=== PATIENT | male | born 1980 | race Caucasian/White ===

== ENCOUNTER 2025-01-20 22:48 | Observation (INO) | payer OTHER, SELFPAY ==
[2025-01-20] VITALS (13 sets, daily range): BP systolic 121–149; BP diastolic 79–96; BMI 33.0
[2025-01-20 19:58] LABS: Glucose - Point of Care 124 mg/dl (70-99)
--- NOTE | 2025-01-20 20:06 | ED.CVA ---
History of Present Illness
<Paula Draper PA-C - Last Filed: 01/21/25 01:16>
General
Chief Complaint: CVA/TIA Symptoms
Source: spouse
Exam Limitations: altered mental status
Time Seen by Provider: 01/20/25 19:54
Onset of Stroke Symptoms
Onset of symptoms known: Yes
Date of onset of symptoms: 01/20/25
Time of onset of symptoms: 19:15
History of Present Illness
History of Present Illness:
44yoM with a history of seizures and prior TIA presenting with his for evaluation of stroke-like symptoms that began around 7:15pm. Patient was out to eat with his for their anniversary dinner this evening. suddenly noticed that he
was making repetitive mouth movements and this index finger was twitching. He started to became unresponsive to questioning and had to escort him out of the restaurant. He drank half an old fashioned. He is unable to answer any questions on
initial exam. He moved to the area 2 months ago from [place]. He takes lacosamide 200mg and zonisamide 100mg for his seizures. He has not missed any doses per . His prior seizures have always been focal and he has never had an
alteration in mental status previously. He had a TIA in 2020 which presented with speech disturbance. He does not take any antiplatelet medications.
Phy Exam
<Paula Draper PA-C - Last Filed: 01/21/25 01:16>
General Physical Exam
General Presentation: no apparent distress
General Skin: warm and dry
General Habitus: normal
General Mental: alert
ENT Exam
ENT Exam: normocephalic
Eye Exam
Eye Exam: PERRL and conjunctiva normal
Cardiovascular Exam
Cardiovascular Exam: regular rate/rhythm
Pulmonary Exam
Pulmonary Exam: no respiratory distress
Neurological Exam
Neurological Exam: other (Patient awake and intermittently follows commands although unable to respond verbally to questioning. Patient does not hold arms against gravity but able to lift both legs without obvious drift. No obvious facial
asymmetry. PERRL. )
Skin Exam
Skin Exam: normal color and warm/dry
Scores
<Paula Draper PA-C - Last Filed: 01/21/25 01:16>
NIH Stroke Score
Level of Consciousness: 0 - Alert
LOC Questions: 0-Answers both correctly
LOC Commands: 0-Performs both correctly
Best Horizontal Gaze: 0-Normal
Visual [place]: 0=Normal, no visual loss
Facial Palsy: 0=Normal, symmetrical
Motor - Right Arm: 0=No drift 10 seconds
Motor - Left Arm: 0=No drift 10 seconds
Motor - Right Le-No drift 5 seconds
Motor - Left Le-No drift 5 seconds
Limb Ataxia: 0-Absent
Sensation: 0-Normal
Best Language: 0-No aphasia
Dysarthria: 0-Normal
Extinction and Inattention: 0-No abnormality
NIH Total Score:: 0
Course
<Paula Draper PA-C - Last Filed: 01/21/25 01:16>
Orders/Labs/Results
Orders:
Orders
01/20/25 19:54
Electrocardiogram (*1) Urgent
Reason for Study: Other
Other Reason for Exam: Possible Stroke
CT HEAD STROKE ALERT W/o Cont Urgent
Comment:
Reason For Exam: STROKE ALERT
Bedside Glucose- Treatment ONCE
Cardiac Monitoring- Treatment ONCE
EKG- Treatment ONCE
IV Insert/Care/Rem.- Treatment PRN
Vital Signs As Directed
Frequency: Other
Weight As Directed
Frequency: Once
Comment: ZERO STRETCHER SCALE FOR ACCURATE WEIGHT
O2 Therapy [RESP] Urgent
Titrate/Wean O2 to maintain O2 sat greater than (%): 93
Special Instructions: MAINTAIN CONTINUOUS O2 SATS > OR = 93%
01/20/25 20:00
CT BRAIN PERF STROKE ALERT Urgent
Comment:
Reason For Exam: stroke symptoms
CT HEAD/NECK ANG STROKE ALERT Urgent
Comment:
Reason For Exam: stroke symptoms
01/20/25 20:02
Complete Blood Count/With Diff Urgent
Comprehensive Metabolic Panel Urgent
PTT Urgent
Prothrombin Time Urgent
Troponin I Urgent
01/20/25 20:33
[facility] [Rapid Point of Care EEG (ED/ICU ONLY)] Q1H
Indications for use:: Altered Mental Status
01/20/25 22:17
Lacosamide [Vimpat] 100 mg PO NOW STA
Lacosamide [Vimpat] 50 mg PO NOW STA
Zonisamide [Zonegran] 100 mg PO NOW STA
01/20/25 22:24
Admit/Transfer Patient As Directed
Co-Sign Provider:
Level of Care: Observation services
Assign to:: Telemetry
Physician / Group: Tristan Chaney
Diagnosis: change in mental status
Reason for Telemetry: CVA/TIA
Date to Stop Telemetry: 01/23/25
Time to Stop Telemetry: 11:00
PRN Pain Medication Management As Directed
May give lesser potent ordered pain med per pt: Yes
preference::
Protocol:: Medication orders for pain may be administered in a
manner that supports deferring to patient preference
when the pt is:
- Requesting an ordered lesser potent pain medication.
Least to most potent pain medications are defined
as: acetaminophen < NSAID < tramadol < opioids
(morphine, oxycodone, hydromorphone).
- Requesting a lesser dose of the same medication IF
ORDERED.
- Requesting a less intrusive route of administration
if both routes are prescribed by the provider (PO <
IV).
01/20/25 22:26
Code Status As Directed
Resuscitation Status: Full Code
01/23/25 11:00
DC Protocol for Telemetry ONCE
Abnormal Lab Results
01/20/25 01/20/25
19:57 20:02
MPV 10.5 H fL
(7.4-10.4)
Glucose 116 H mg/dl
(70-99)
POC Glucose 124 H mg/dl
(70-99)
01/20/25 20:02
01/20/25 20:02
Vital Signs
Initial and Last Documented VS:
Initial Vital Signs
Pulse Resp Pulse Ox
58 15 95
01/20/25 19:56 01/20/25 19:56 01/20/25 19:56
Last Documented Vital Signs
Pulse Resp BP Pulse Ox
65 16 126/83 97
01/21/25 00:15 01/21/25 00:15 01/21/25 00:00 01/21/25 00:15
Caitlynlt;Misha Brenner, - Last Filed: 01/20/25 23:11>
Orders/Labs/Results
Orders:
Orders
01/20/25 19:54
Electrocardiogram (*1) Urgent
Reason for Study: Other
Other Reason for Exam: Possible Stroke
CT HEAD STROKE ALERT W/o Cont Urgent
Comment:
Reason For Exam: STROKE ALERT
Bedside Glucose- Treatment ONCE
Cardiac Monitoring- Treatment ONCE
EKG- Treatment ONCE
IV Insert/Care/Rem.- Treatment PRN
Vital Signs As Directed
Frequency: Other
Weight As Directed
Frequency: Once
Comment: ZERO STRETCHER SCALE FOR ACCURATE WEIGHT
O2 Therapy [RESP] Urgent
Titrate/Wean O2 to maintain O2 sat greater than (%): 93
Special Instructions: MAINTAIN CONTINUOUS O2 SATS > OR = 93%
01/20/25 20:00
CT BRAIN PERF STROKE ALERT Urgent
Comment:
Reason For Exam: stroke symptoms
CT HEAD/NECK ANG STROKE ALERT Urgent
Comment:
Reason For Exam: stroke symptoms
01/20/25 20:02
Complete Blood Count/With Diff Urgent
Comprehensive Metabolic Panel Urgent
PTT Urgent
Prothrombin Time Urgent
Troponin I Urgent
01/20/25 20:33
[facility] [Rapid Point of Care EEG (ED/ICU ONLY)] Q1H
Indications for use:: Altered Mental Status
01/20/25 22:17
Lacosamide [Vimpat] 100 mg PO NOW STA
Lacosamide [Vimpat] 50 mg PO NOW STA
Zonisamide [Zonegran] 100 mg PO NOW STA
01/20/25 22:24
Admit/Transfer Patient As Directed
Co-Sign Provider:
Level of Care: Observation services
Assign to:: Telemetry
Physician / Group: Shiv, Tristan
Diagnosis: change in mental status
Reason for Telemetry: CVA/TIA
Date to Stop Telemetry: 01/23/25
Time to Stop Telemetry: 11:00
PRN Pain Medication Management As Directed
May give lesser potent ordered pain med per pt: Yes
preference::
Protocol:: Medication orders for pain may be administered in a
manner that supports deferring to patient preference
when the pt is:
- Requesting an ordered lesser potent pain medication.
Least to most potent pain medications are defined
as: acetaminophen < NSAID < tramadol < opioids
(morphine, oxycodone, hydromorphone).
- Requesting a lesser dose of the same medication IF
ORDERED.
- Requesting a less intrusive route of administration
if both routes are prescribed by the provider (PO <
IV).
01/20/25 22:26
Code Status As Directed
Resuscitation Status: Full Code
01/23/25 11:00
DC Protocol for Telemetry ONCE
Abnormal Lab Results
01/20/25 01/20/25
19:57 20:02
MPV 10.5 H fL
(7.4-10.4)
Glucose 116 H mg/dl
(70-99)
POC Glucose 124 H mg/dl
(70-99)
01/20/25 20:02
01/20/25 20:02
Vital Signs
Initial and Last Documented VS:
Initial Vital Signs
Pulse Resp Pulse Ox
58 15 95
01/20/25 19:56 01/20/25 19:56 01/20/25 19:56
Last Documented Vital Signs
Pulse Resp BP Pulse Ox
65 16 126/83 97
01/21/25 00:15 01/21/25 00:15 01/21/25 00:00 01/21/25 00:15
<Paula Draper PA-C - Last Filed: 01/21/25 01:16>
MDM/Problems Addressed
Differential Diagnosis Includes:
44yoM presenting as a stroke alert. Eating dinner tonight when he started to have mouth twitching and stopped responding verbally. Symptom onset <1 hour ago. Eyes open on initial exam but patient unable to answer questions or reliably following
commands. No obvious focal neuro deficits. Differential diagnosis includes but is not limited to: Seizure with postictal period, intracranial hemorrhage, ischemic CVA
Initial ED plan: Fingerstick glucose normal. Labs and CT/CTA/CTP ordered per protocol.
<Paula Draper PA-C - Last Filed: 01/21/25 01:16>
*Pulse Oximetry
SaO2: 95
Oxygen Mode of Delivery: Room air
Patient hypoxic: no
*EKG
Interpreted by ED Provider?: Yes
EKG Intrepretation Date: 01/20/25
Heart Rate: 78
Rate: normal
Rhythm: sinus
[place]: normal axis
Interval: normal interval
QRS Pattern: normal QRS
Ischemia: no ischemia
*Critical Care Note
Total Time (30-74mins, 75-104mins- exclusive of procedures): Not Applicable
<Paula Draper PA-C - Last Filed: 01/21/25 01:16>
Update Note
Update Note:
CT head negative for hemorrhage. No large vessel occlusion on CTA. On reassessment, patient is now awake and alert. feels that he is back to baseline. NIHSS 0. Patient not a TNK candidate. Suspect seizure with postictal period vs. TIA.
Will admit for neurology evaluation.
ED Attending Note
<Paula Draper PA-C - Last Filed: 01/21/25 01:16>
-
Portions of this chart may have been created with voice recognition software.� Occasional wrong word or��sound alike� substitutions may have occurred due to the inherent limitations of voice recognition software.
<Misha Brenner, - Last Filed: 01/20/25 23:11>
ED Attending Note
Patient seen and examined by attending physician: Yes
I performed the substantive portion of visit, reviewed & personally made and approve the management plan that is documented in note by myself or CHARISSA.: Yes
ED Attending Note:
I agree with Mary's note
Patient was having dinner with his when he became nonverbal, had some facial twitching and some arm twitching. Patient was able to follow some commands and was able to walk with a lot of help from his to the car. felt the patient
was weak on the left side. Stroke alert called in triage. Patient does have a seizure disorder for which she takes 2 antiepileptics. He states he is compliant with his medication. They recently moved to the area and has not established care with
a neurologist here but does have an appointment in February.
At the time I evaluated the patient it was after his CT scans. He is back to his baseline mental status. He has no focal weakness.
General: Awake, Alert, Oriented X3. No acute distress.
Vitals: unremarkable
Head: Atraumatic
Eyes: Pupils equal, EOMI
Throat: Airway intact, no exudates
Neck: Trachea midline
Lungs: Clear and equal b/l
Heart: Regular rate, no murmurs
Abd: Soft, Nontender, No pulsatile mass
Neuro: Cranial nerves intact, muscle strength equal bilaterally, cerebellar exam normal
Skin: Warm, dry, no rash
Extremities: pulses equal b/l, no edema
CT, CTA, CT perfusion scan were all essentially unremarkable.
Patient had either a TIA or a partial complex seizure with William's paralysis. The fact he is back to baseline is quite reassuring. However we will hospitalize him for further evaluation by neurology.
Discharge Plan
Departure
Patient Disposition: Admit
Date of Disposition: 01/20/25
Time of Disposition: 21:14
Presentation/result/management discussed w/ accepting MD/DO: Hospitalist
Discharge Problem:
Stroke-like symptoms
Interventions
Interventions:
*Risk Screen - Suicide Last Done: 01/20/25 19:56
*General Assessment Last Done: 01/20/25 19:56
*Neglect/Abuse Screening Last Done: 01/20/25 19:56
*ED- Fall Risk Assessment Last Done: 01/20/25 20:23
*ED COVID-19 Vaccine History Last Done: 01/20/25 20:23
*ED Influenza Vaccine History Last Done: 01/20/25 19:56
ED- Pulmonary Assessment Last Done: 01/20/25 20:10
ED- Neurological Assessment Last Done: 01/20/25 20:24
ED- Cardiac Assessment Last Done: 01/20/25 20:24
ED Swallowing Screen Last Done: 01/20/25 22:42
[2025-01-20 20:13] LABS: Hematocrit 45.2 % (39.0-52.0); Hemoglobin 15.3 g/dL (13.0-18.0); Mean Corp Hgb Conc. 33.8 g/dL (33.0-37.0); Mean Corpuscular Volume 90.4 fL (80.0-94.0); Nucleated Red Blood Cells % 0 % (-); Platelet Count 238 10^3/uL (130-400); Red Cell Dist. Width 11.9 % (11.5-14.5)
[2025-01-20 20:21] LABS: INR 0.97; PT 13.4 Sec (11.4-14.6)
[2025-01-20 20:22] LABS: APTT 24.8 Sec (23.4-35.0)
[2025-01-20 20:34] LABS: ALT (SGPT) 44 U/L (0-50); AST (SGOT) 27 U/L (17-59); Albumin 4.9 g/dl (3.5-5.0); Alkaline Phosphatase 61 U/L (38-126); Blood Urea Nitrogen 15 mg/dl (9-20); Calcium 10.0 mg/dl (8.4-10.2); Carbon Dioxide 26 mmol/L (22-30); Chloride 102 mmol/L (98-107); Estimated Creatinine Clearance 109 ml/min; Glucose 116 mg/dl (70-99); Potassium 3.7 mmol/L (3.5-5.1); Sodium 135 mmol/L (135-145); Total Protein 7.8 g/dl (6.3-8.2); eGFR > 60.00
[2025-01-20 20:36] LABS: Troponin I < 0.012 ng/ml
--- NOTE | 2025-01-20 21:40 | HPS.HSE ---
Family Physician
-
Family Physician:
Chief Complaint
-
change in mental status
History of Present Illness
Patient is a 44-year-old male with past medical history significant for seizures and Hx TIA who presented to [facility] ED for evaluation of change in mental status. Patient and spouse at bedside who assisted in HPI. Patient was out to dinner for 10 year
anniversary when he had an acute onset of disorientation and weakness. Patients reports that she observed patient making repetitive mouth movements and his index finger was twitching. reports he became unresponsive to questioning and she
then needed to assist him in leaving the restaurant related to weakness. He denies any loss of consciousness, loss of control of bowel or bladder. Patient denies any other symptoms, no dizziness, numbness, cough, shortness of breath, chest pain,
nausea, vomitng or diarrhea.
Medical History
Past Medical History
Past Medical History: Reports Other
Additional Past Medical History:
seizures
Hx TIA
Past Surgical History: Reports Other
Additional Past Surgical History:
tonsillectomy
adenoidectomy
uvulectomy
Social History
Tobacco: Non-smoker
Alcohol: Occasional
Drug: None
Personal:
Living: With Family
Employment: Employed
Family History
Family History: Not pertinent
Allergies / Home Medications
Allergies reflects when Allergies were last updated in [facility].
Home Medications with original date entered in [facility]
Allergy/Medication List:
Allergies
Allergy/AdvReac Type Severity Reaction Status Date / Time
No Known Allergies Allergy Verified 01/20/25 19:59
Home Medications
fluoxetine 20 mg tablet 40 mg PO DAILY 01/20/25
lacosamide 100 mg tablet 100 mg PO DAILY 01/20/25
lacosamide 150 mg tablet 150 mg PO HS 01/20/25
zonisamide 100 mg capsule 100 mg PO HS 01/20/25
Review of Systems
-
History Source: Patient and Family
Constitutional: Denies Fever or Chills
EENT: Denies Sore Throat
Respiratory: Denies Cough, Hemoptysis or Trouble Breathing
Cardiac: Denies Chest Pain, Diaphoresis, Palpitations or Syncope
Abdomen/GI: Denies Abdominal Pain, Nausea, Vomiting, Diarrhea or Constipated
: Denies Dysuria, Frequency or Urgency
Musculoskeletal: Denies Joint Pain
Skin: Denies Rash
Neurological: Reports Weakness and Other (acute onset of disorientation ); Denies Dizzy or Headache
Endocrine: Denies Polyuria
Hematologic/Lymphatic: Denies Bleeding
Physical Exam
Vital Signs
Vital Signs
Pulse Resp BP Pulse Ox
67 17 141/91 99
01/20/25 20:15 01/20/25 20:15 01/20/25 20:00 01/20/25 20:15
Physical Exam
General: Well Developed, Well Nourished, No Apparent Distress, Comfortable, Conversant and Obese
HEENT: NormoCephalic, Moist mucous membranes, PERRLA, Nose Appears Normal and Ears Appear Normal
Respiratory: Clear; No Wheezes, Rales, Rhonchi or Non Labored Respirations
Cardiac: S1/S2 and Regular Rhythm; No Murmur or Peripheral Edema
GI: Soft, Non Tender, Non Distended and Normal Bowel Sounds
Musculoskeletal: No Clubbing and No Cyanosis
Skin: Warm and IV/Catheter Site
Neuro: Awake, AO x 3, No Motor Deficits, Nonfocal/grossly intact, Cranial Nerves Intact and No Sensory Deficits; No Slurred Speech, Facial Droop, Tremors or Sedated
Psych: Calm and Intact Judgment/Insight
Laboratory Results
-
01/20/25 20:02
01/20/25 20:02
Laboratory Results
PT 13.4 Sec (11.4-14.6) 01/20/25 20:02
INR 0.97 01/20/25 20:02
APTT 24.8 Sec (23.4-35.0) 01/20/25 20:02
Total Bilirubin 0.6 mg/dl (0.2-1.3) 01/20/25 20:02
AST 27 U/L (17-59) 01/20/25 20:02
ALT 44 U/L (0-50) 01/20/25 20:02
Alkaline Phosphatase 61 U/L (38-126) 01/20/25 20:02
Troponin I < 0.012 ng/ml 01/20/25 20:02
Data Reviewed
-
CT Scan: Report Reviewed by me (Head: 1. No CT evidence for acute intracranial hemorrhage or transcortical infarct. 2. Mild diffuse cerebral volume loss. ASPECT score: 10; NECK CTA: 1. No CTA evidence for stenosis, occlusion, or dissection
in either internal carotid artery. 2. No CTA evidence for stenosis, occlusion, or )
Medical Tests (Nuc Med, Echo, EKG etc): Report Reviewed by me (EKG: NORMAL SINUS RHYTHM)
Lab Data: Labs Reviewed by me
Impression/Plan
-
IMPRESSION/PLAN:
#change in mental status 2/2 CVA/TIA vs. seizure
labs unremarkable
EKG: NORMAL SINUS RHYTHM
Head CT: 1. No CT evidence for acute intracranial hemorrhage or transcortical infarct.
2. Mild diffuse cerebral volume loss.
NECK CTA: 1. No CTA evidence for stenosis, occlusion, or dissection in either internal carotid artery.
2. No CTA evidence for stenosis, occlusion, or dissection in either vertebral artery.
3. Severe tortuosity of the distal cervical segment of the right ICA.
4. Small right central disc-osteophyte complex at C5/C6 causing mild spinal cord compression.
HEAD CTA: 1. No CTA evidence for large vessel arterial stenosis or occlusion in the anterior circulation.
2. 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
3. Mild to moderate hypoplasia of the intradural segment of the right vertebral artery.
4. Moderate hypoplasia of the P1 segment of the right posterior cerebral artery.
5. Mild diffuse cerebral or cerebellar volume loss.
- Admit to telemetry
- Consult Neurology
- Brain MRI
- EEG
- neuro checks per protocol
#seizures
- continue lacosamide and zonisamide
#depression
- hold fluoxetine
#Hx TIA
Code status: full code
DVT prophylaxis: SCDs
--- NOTE | 2025-01-20 22:12 | W.PN.UPDATE ---
Update Note
Progress Note Update
This note serves as an addendum to the H&P by scrap drop crane operator Michele Norman
HPI
44M HX Sz & prior TIA seen at ER :
- stroke alert
- onset around 7 15 pm
- out for dinner with for 10 yr anniversary dinner this evening
- witnessed suddenly noticed that he was making repetitive mouth movements and index finger was twitching.
- Then became unresponsive to questioning and had to escort him out of the restaurant.
- He had Old fashioned Cocktail before the dinner
- Reported Sz 2-3 episodes per month
- Last Sz was a coouple of week ago
He moved to the area 2 months ago from [place]
Currently on lacosamide 200mg + zonisamide 100mg for his seizures. Reports compliance with AED meds
Prior Sz have always been focal and he has never had an alteration in mental status previously.
HX TIA in 2020 which presented with speech disturbance.
Relevant VS
Pulse Resp BP Pulse Ox
67 17 141/91 99
01/20/25 20:15 01/20/25 20:15 01/20/25 20:00 01/20/25 20:15
PE
Gen: awake and appropriate
HEENT: symmetric face , nl speech
Neck: supple
Lungs: CTA
Cor: RRR S1 S2
Abdomen:�Benign
DIE TRY OUT WORKER STAMPING: AAO3, NFND
Relevant Data
01/20/25
20:02
WBC 7.6
Plt Count 238
INR 0.97
Carbon Dioxide 26
Creatinine 1.0
eGFR > 60.00
Troponin I < 0.012
CT HEAD/NECK ANG STROKE ALERT
NECK CTA:
1. No CTA evidence for stenosis, occlusion, or dissection in either internal carotid artery.
2. No CTA evidence for stenosis, occlusion, or dissection in either vertebral artery.
3. Severe tortuosity of the distal cervical segment of the right ICA.
4. Small right central disc-osteophyte complex at C5/C6 causing mild spinal cord compression.
HEAD CTA:
1. No CTA evidence for large vessel arterial stenosis or occlusion in the anterior circulation.
2. 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
3. Mild to moderate hypoplasia of the intradural segment of the right vertebral artery.
4. Moderate hypoplasia of the P1 segment of the right posterior cerebral artery.
5. Mild diffuse cerebral or cerebellar volume loss.
CT BRAIN PERF STROKE ALERT
ASSESSMENT & PLAN
Pending Rx reconciliation
HPI suggestive of SZ ( Partial complex SZ) with post ictal AMS, less likely TIA
HX SZ since July 2019 - compliance with Sz Rx
- Reported Sz 2-3 episodes per month
- Last Sz was a couple of week ago
- Not a TNK candidate due to rapid resolution of symptoms.
- Just moved from [place] - does not have Neurologist
- cont. Lacosamide 150mg HS and Zonisamide 100mg HS
- EEG
- Brain MRI
- Fall precaution
- Neurologist consult
HX Depression
- Hold Fluoxetine due to at risk for lowering SZ threshol
DVT Px: SCD
Full code
OBS TLM
[2025-01-20] MEDS: VIMPAT 50 MG PO (22:38)
[2025-01-20] MEDS: VIMPAT 100 MG PO (22:38)
[2025-01-20] MEDS: ZONEGRAN 100 MG PO (22:39)
[2025-01-21] VITALS (11 sets, daily range): BP systolic 97–141; BP diastolic 59–90; BMI 28.9
--- NOTE | 2025-01-21 07:30 | W.RAPID.EEG ---
Rapid EEG
-
Procedure Date: 01/20/25
Patient Status: Emergency Room
Results:
Impression:
No evidence of status epilepticus
Recording Information:
Diagnostic Recording Time: 02:24:25 (144 minutes)
Recording 1:
Start Time: Jan 20, 2025 20:39 PM End Time: Jan 20, 2025 23:03 PM
Recording Technique: This EEG was obtained using a 10 lead, 8 channel system positioned circumferentially without any parasagittal coverage (rapid EEG). Computer selected EEG is reviewed as well as background features and all clinically significant
events. Clarity algorithm utilized and implemented to provide analysis of underlying activity and seizure detection used to facilitate reading. ICD-10 Code [id number]
Disclaimer: EEG findings should be interpreted in the context of clinical history and other tests.
[2025-01-21] MEDS: VIMPAT 100 MG PO ×2 (07:56→09:50)
[2025-01-21 08:00] LABS: HDL Cholesterol 65 mg/dl; LDL Cholesterol, Calculated 106 mg/dl; Very Low Density Lipoprotein 18 mg/dl (0-30)
--- NOTE | 2025-01-21 08:17 | W.PN.HOSP.TC ---
Today's Communication/Plan
-
DC today
Outpatient Neuro follow up
Assessment / Plan
Assessment / Plan
ASSESSMENT:
A 44 year old male with PMH epilepsy and TIA who presented to the ED with altered mental status. Patient was out for dinner when he had sudden onset of disorientation and weakness around 7:15 yesterday. stated he was making repetitive mouth
movements and his index finger was twitching. He then became unresponsive, and required assistance getting out of the restaurant due to bilateral upper extremity weakness. Similar symptoms 2-3 a month, last a couple of weeks ago. Patient states that
his seizure symptoms usually last 20-30 minutes, but this episode lasted hours. No LOC, bowel/urinary incontinence, dizziness, numbness, cough, shortness of breath, chest pain, nausea, vomiting or diarrhea.
Head CT: 1. � No CT evidence for acute intracranial hemorrhage or transcortical infarct.
�������������2. � Mild diffuse cerebral volume loss.
NECK CTA: 1. � No CTA evidence for stenosis, occlusion, or dissection in either internal carotid artery.
����������������2. � No CTA evidence for stenosis, occlusion, or dissection in either vertebral artery.
����������������3. � Severe tortuosity of the distal cervical segment of the right ICA.
����������������4. � Small right central disc-osteophyte complex at C5/C6 causing mild spinal cord compression.
HEAD CTA: 1. � No CTA evidence for large vessel arterial stenosis or occlusion in the anterior circulation.
����������������2. 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
����������������3. � Mild to moderate hypoplasia of the intradural segment of the right vertebral artery.
����������������4. � Moderate hypoplasia of the P1 segment of the right posterior cerebral artery.
����������������5. � Mild diffuse cerebral or cerebellar volume loss.
PLAN:
# Altered mental status secondary to seizure
# History of epilepsy
# History of TIA
Initial labs within normal limits
EKG NSR
Neurology consulted. Likely seizure, not CVA/TIA. Patient to decrease dose of Zonisamide to 50 mg, and increase dose of Lacosamide to 200 mg.
Start daily aspirin
Has had extensive workup at [place], no need for MRI/ EEG at this time.
Patient to follow up with Neurology outpatient
# Depression
Fluoxetine held while inpatient
Code status: Full code
DVT prophylaxis: SCDs
Anticipated Discharge: Today
Subjective/Interval History
-
Date of Service: January 21, 2025
Patient evaluated at bedside this morning. He states he feels well and is back to baseline. No new complaints.
Objective Data
-
Labs:
Laboratory Results
01/20/25
20:02
PT 13.4
INR 0.97
APTT 24.8
Sodium 135
Potassium 3.7
Chloride 102
Carbon Dioxide 26
BUN 15
Creatinine 1.0
Glucose 116 H
Calcium 10.0
Total Bilirubin 0.6
AST 27
ALT 44
Alkaline Phosphatase 61
Vital Signs:
Vital Signs
Temp Pulse Resp BP Pulse Ox
97.7 F 61 16 120/77 98
01/21/25 07:42 01/21/25 07:42 01/21/25 07:42 01/21/25 07:42 01/21/25 07:42
I&O
01/20/25 01/21/25 01/22/25
06:59 06:59 06:59
Intake Total 240 / 240
Balance 240 / 240
Review of Systems
-
History Source: Patient
Constitutional: Reports No Symptoms
EENT: Reports No Symptoms Reported
Respiratory: Reports No Symptoms
Cardiac: Reports No Symptoms
Abdomen/GI: Reports No Symptoms
Breast: Reports No Symptoms
Genitourinary: Reports No Symptoms
Musculoskeletal: Reports No Symptoms
Skin: Reports No Symptoms
Neuro: Reports No Symptoms
Endocrine: Reports No Symptoms
Hematologic / Lymphatic: Reports No Symptoms
Allergy / Immunology: Reports No Symptoms
Physical Exam
-
General: Well Developed, Well Nourished, No Apparent Distress, Comfortable and Conversant
HEENT: Normocephalic, Atraumatic and Moist Mucous Membranes
Respiratory: Clear to Auscultation
Cardiac: Regular Rhythm and S1/S2 (No murmur)
GI: Soft, Nontender, Nondistended and Normal Bowel Sounds
Musculoskeletal: No Clubbing, No Cyanosis and No Edema
Skin: Warm
Neuro: Awake and AO x 3
Psych: Calm and Intact Judgement/Insight
Data Reviewed
-
Labs: Labs Reviewed by me, Discussed with Physician and Discussed with Patient
Old Records: Reviewed
--- NOTE | 2025-01-21 08:52 | CON.NEURO4 ---
Addendum entered and electronically signed by Clay Fernández MD 01/21/25 18:17:
Studies reviewed.
I have personally examined the patient. I reviewed and agree with the DEPENDENCY CASE MANAGER's Note.
My addenda:
Awake, alert, interactive. No acute distress.
Speech intact.
Follows 2-step requests w/o difficulty. No tremor.
Extra-ocular movements grossly intact.
Facial movements full and symmetric. Hearing intact to normal conversational volume.
Normal UE movements bilaterally.
Neck: full ROM.
Chest: no dyspnea
Heart: no JVD
Ext: (-) Clubbing, (-) Cyanosis, (-) Edema
IMPRESSIONS/RECOMMENDATIONS:
Abrupt onset of change in mental status in a patient with well-established history of focal aware nonmotor seizures starting in 2019.
New semiology of seizure most likely represents an extension of the patient's prior seizures. There is no clear evidence of patient's been experiencing a TIA at this time
Advance lacosamide dosing from current dosing to dosing of 100 mg in the morning and 150 mg at bedtime to 200 mg twice a day
Reduce initially my dosing from 100 mg once a day to dosing of 50 mg once a day due to side effect
Eventual outpatient repeated EEG
Eventual outpatient repeated MRI of brain with and without contrast
Provide midazolam nasal spray as needed for recurrent seizure
D/W patient
All questions answered.
Will continue to follow as outpatient.
Original Note:
Documented by User: Tanisha Le NP 01/21/25 16:04
Consultation - Neurology 4
-
CONSULTING PHYSICIAN: Clay Fernández MD
REFERRING PHYSICIAN: Hospitalists/SHERRELL Garduno
DICTATED BY: SHERRELL Lopez
DATE/TIME OF REQUEST: 01/20/25
DATE/TIME OF CONSULTATION: 01/21/25
Reason for Consultation: Breakthrough seizure
History of Present Illness:
This is a 44-year-old right-handed male who has presented to the hospital with report of prolonged seizure-like activity. Patient reports a history of focal aware non-motor seizures starting in 2019. He has undergone extensive evaluation by
Neurology at [facility] and a neurologist in [place]. He recently moved to this area and has an appointment to establish with a Neurologist in February. He reports that his typical seizures are sometimes associated with a metallic
tast, a cold chill down his arm, finger twitching, feeling dazed/distant, and not being able to speak but being fully aware and able to ambulate. He denies any tongue biting, or bowel/bladder incontinence with any of his events. Sometimes the events
are triggered by taking a first bite of food. Typically his seizures last 3-4 seconds before resolving. Continuous 3 day EEG in 08/2020 demonstrated 22 seizures; he pushed the button himself when he felt an event come on and was 100% accurate. There
was rhythmic right temporal slowing 3 hrz at T4 with 1 minute brief postictal slowing. His last MRI brain w/ and w/o contrast was in 2022 and was unremarkable. EEG in 2022 was unremarkable. He was initiatlly on Keppra and Briviact which he reports
were not effective. He then was put on lacosamide and notes complete relief of events at first but starting two years ago zonisamide was added. He is taking lacosamide 100mg AM, 150mg PM and reports he was told this was the highest dose. He is
taking zonisamide 100mg HS and notes that after starting this his libido decreased. He typically has 1 event every two weeks.
He reports having his typical event last night while out to dinner around 1915, but this time his inability to speak did not resolve for 2 hours, prompting his to bring him to the ER for evaluation. A stroke alert was activated due to
aphasia. CT head, CTA head/neck, and CT brain perfusion were obtained and are negative for any acute abnormalities. He was not a candidate for TNK/IAT due to symptoms being compatible with his previous seizures, low concern for stroke. Today
(01/21/25), he reports feeling completely back to his baseline. He denies any headache, dizziness, vision changes, speech/swallow difficulty, numbness, and weakness.
Past Medical History: focal aware non-motor seizures, history of concussions playing ice hockey in high school, depression/anxiety
Surgical History: Tonsillectomy, adenoidectomy, uvulectomy.
Family History: Reviewed and noncontributory.
Social History: Occasional alcohol. Denies tobacco and illicit drug use.
Allergies: No known allergies.
Home Medications: See below.
Review of Symptoms:
Patient denies any fever, headache, chest pain, shortness of breath, GI or symptoms.
�Per the HPI.�All systems are reviewed negative except above.
Physical Exam:
The patient is afebrile, abdomen is nondistended, breathing is unlabored, skin is warm and dry, no edema.
NIH Stroke Scale:
I performed the NIH stroke scale on the patient on 01/21/25 at 0900. The patient scored 0 points on the NIH stroke scale assessment, which were assigned as follows: See below.
Neurologic Examination:
The patient is awake, alert and oriented x 3. He is able to follow commands and answer questions appropriately. There is no aphasia or dysarthria. On cranial nerve assessment, pupils are 3 mm bilateral, round and reactive to light and
accommodation. Visual de anda are full. Extraocular movements are intact. Facial sensations are intact and bilaterally symmetrical, there is no facial asymmetry. Hearing is intact bilaterally to normal conversation volume. Tongue palate and uvula are
midline. Sternocleidomastoid strengths are full bilaterally. Motor strengths are 5/5 bilateral upper and lower extremities on medical research [place] scale. There is no drift or involuntary movement noted. Deep tendon reflexes are 2+ bilateral
upper and lower extremities and Babinski is absent bilaterally. Sensation of cold is intact. There was no extinction noted on double simultaneous stimulation. Coordination is intact by finger to nose bilaterally.
Lab Results: See below.
Neuro Imaging:
1. CT head 01/20/25: No CT evidence for acute intracranial hemorrhage or transcortical infarct. Mild diffuse cerebral volume loss. ASPECT score: 10.
2. CTA head/neck 01/20/25: No CTA evidence for stenosis, occlusion, or dissection in either internal carotid artery. No CTA evidence for stenosis, occlusion, or dissection in either vertebral artery. Severe tortuosity of the distal cervical segment
of the right ICA. Small right central disc-osteophyte complex at C5/C6 causing mild spinal cord compression. 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 Mild to moderate hypoplasia of the intradural segment of the
right vertebral artery. Moderate hypoplasia of the P1 segment of the right posterior cerebral artery. Mild diffuse cerebral or cerebellar volume loss.
3. CT brain perfusion 01/20/25: CBF 0ml, Tmax 0ml.
Differentials for the patient's presentation include:
1. Focal aware non motor seizure disorder with a breakthrough seizure producing patient's symptoms. No concern for stroke.
Patient has the following risk factors for their symptoms: Hx seizures
IV Tenecteplase/IAT candidacy: Not a candidate due to low concern of stroke, no LVO.
Recommendations:
-Increase home lacosamide from 100mg/150mg to 200mg twice a day.
-Decrease home zonisamide 100mg to 50mg, eventual discontinuation of this medication as an outpatient.
-Do not see a role for MRI brain or EEG imaging at this point, can consider as an outpatient.
-Patient would benefit from Nayzilam seizure-rescue nasal spray for breakthrough events, will order as an outpatient.
-Follow-up with an epilepsy specialist as an outpatient.
-Follow-up with [facility] as an outpatient in 3-4 weeks.
Discussed patient care with: Dr. Fernández, the patient
Vital Signs and Labs
.
Vital Signs and Labs:
Lab Results
01/20/25 20:02
01/20/25 20:02
Temp Pulse Resp BP Pulse Ox
97.7 F 61 16 120/77 98
01/21/25 07:42 01/21/25 07:42 01/21/25 07:42 01/21/25 07:42 01/21/25 07:42
PT 13.4 Sec (11.4-14.6) 01/20/25 20:02
INR 0.97 01/20/25 20:02
Medications
-
Active Medications
Generic Name Dose Route Start Last Admin
Trade Name Jacek SALOMON Reason Stop Dose Admin
Lacosamide 100 mg 01/21/25 08:00 01/21/25 07:56
Lacosamide (Vimpat) 100 Mg Tablet PO 02/18/25 07:59 100 mg
DAILY DIONE Administration
Lacosamide 150 mg 01/21/25 22:00
Lacosamide (Vimpat) 50 Mg Tablet PO 02/18/25 21:59
HS DIONE
Zonisamide 100 mg 01/21/25 22:00
Zonisamide 100 Mg Capsule PO 02/18/25 21:59
HS DIONE
Home Medications
�Medication �Instructions �Recorded
fluoxetine 20 mg tablet 40 mg PO DAILY Mental 01/20/25
Health/Anxiety
lacosamide 100 mg tablet 100 mg PO DAILY Antiseizure Agent, 01/20/25
lacosamide 150 mg tablet 150 mg PO HS Antiseizure Agent, 01/20/25
zonisamide 100 mg capsule 100 mg PO HS Antiseizure Agent, 01/20/25
NIH Stroke Score
Subsequent NIH Scale
Date of Subsequent NIH Scale: 01/21/25
Time of Subsequent NIH Scale: 09:00
NIH Stroke Score
Level of Consciousness: 0 - Alert
LOC Questions: 0-Answers both correctly
LOC Commands: 0-Performs both correctly
Best Horizontal Gaze: 0-Normal
Visual [place]: 0=Normal, no visual loss
Facial Palsy: 0=Normal, symmetrical
Motor - Right Arm: 0=No drift 10 seconds
Motor - Left Arm: 0=No drift 10 seconds
Motor - Right Le-No drift 5 seconds
Motor - Left Le-No drift 5 seconds
Limb Ataxia: 0-Absent
Sensation: 0-Normal
Best Language: 0-No aphasia
Dysarthria: 0-Normal
Extinction and Inattention: 0-No abnormality
NIH Total Score:: 0
Modified [place] (mRS) Score
Modified Zen Scale (mRS): No symptoms
Score: 0
Alteplase Contraindication
Inclusion and Exclusion criteria reviewed: Yes
IAT Contraindications: Imaging doesn't show large vessel occlusion as cause of stroke

Documented by User: Clay Fernández MD 01/21/25 18:14
NIH Stroke Score
NIH Stroke Score
NIH Total Score:: 0
Modified [place] (mRS) Score
Score: 0
--- NOTE | 2025-01-21 18:05 | W.DCSUMMARY ---
Discharge Summary
Discharge Data
Date of Admission: 01/20/25
Date of Discharge: 01/21/25
-
Pending Results: No
Hospital Course
Discharging Physician : Dr. Scotty Hunt and Dr. Antoine Us
Disposition : Home
Principal Discharge diagnosis : Altered mental status secondary to seizure
Chronic Discharge diagnosis : History of epilepsy, history of TIA, depression
Hospital Course : A 44 year old male with PMH of epilepsy and TIA who presented to ED with altered mental status. The patient had sudden onset disorientation and bilateral upper extremity weakness while dining out around 7:15 PM on 01/20/25
accompanied with repetitive mouth movements and twitching of index finger. stated he stopped answering all questions and required assistance out of the restaurant. There have been similar episodes in the past but they usually resolve within
20-30 minutes, though this episode lasted several hours. Patient denied LOC, dizziness, numbness, cough, dyspnea, chest pain, nausea, vomiting, diarrhea or any other symptoms.
Initials labs were normal and EKG was in sinus rhythm. Neurology was consulted and determined that episode was consistent with seizure activity rather than CVA/TIA. Recommendations included decreasing dose of zonisamide to 50 mg and increasing
lacosamide to 200 mg. The patient was also started on daily aspirin. Given prior extensive work up at [place], no further MRI or EEG was done during hospitalization. The patient remained stable for discharge, and is to follow up with Neurology
as outpatient within the next month. He is also to see PCP within a week.
Important imaging findings :
Head CT: 1. No CT evidence for acute intracranial hemorrhage or transcortical infarct.
2. Mild diffuse cerebral volume loss.
NECK CTA: 1. No CTA evidence for stenosis, occlusion, or dissection in either internal carotid artery.
2. No CTA evidence for stenosis, occlusion, or dissection in either vertebral artery.
3. Severe tortuosity of the distal cervical segment of the right ICA.
4. Small right central disc-osteophyte complex at C5/C6 causing mild spinal cord compression.
HEAD CTA: 1. No CTA evidence for large vessel arterial stenosis or occlusion in the anterior circulation.
2. 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
3. Mild to moderate hypoplasia of the intradural segment of the right vertebral artery.
4. Moderate hypoplasia of the P1 segment of the right posterior cerebral artery.
5. Mild diffuse cerebral or cerebellar volume loss.
Discharge Plan
-
Patient Disposition: Home (Routine Discharge)
Discharge Diagnosis/Procedures: Altered mental status secondary to seizure
History of epilepsy
History of TIA
Condition: Good
Diet: As tolerated
Activity: As tolerated
Driving Restrictions: As prior to admission
Referrals:
PCP [Other] - in less than 1 week
Clay Fernández MD [Active, Neurology] - in two to three weeks
Additional Discharge Medication Instructions: We have increased Lacosamide dose from 100 to 200 mg twice daily, and decreased Zonisamide dose from 100 to 50 mg. Please take daily aspirin.
Prescriptions:
New
zonisamide 25 mg Capsule
50 mg PO HS Qty: 60 0RF
aspirin 81 mg capsule
81 mg PO DAILY Qty: 30 0RF
lacosamide 100 mg Tablet
200 mg PO BID 30 Days Qty: 120 0RF
Continued
fluoxetine 20 mg Tablet
40 mg PO DAILY
Discontinued
zonisamide 100 mg Capsule
100 mg PO HS
lacosamide 100 mg Tablet
100 mg PO DAILY
lacosamide 150 mg Tablet
150 mg PO HS
Discharge Orders:
Discharge Patient (As Directed); Ordered 01/21/25
Ordered By: Antoine Us
Discharge Date and Time
Discharge Date/Time: 01/21/25 13:42
Print Language: [place]
== END 2025-01-21 13:42 | disposition home or self-care (01) ==
LOC: 4 EAST ACU 22:48
PROVIDERS: Emergency Medicine; Physician Assistant; ADMITTING PHYSICIAN Internal Medicine; ATTENDING PHYSICIAN Internal Medicine; CONSULT PHYSICIAN Psychiatry & Neurology Neurology; EMERGENCY PHYSICIAN Emergency Medicine
PROC: XX20X89 Monitoring of Brain Electrical Activity, Computer-aided Detection and Notification, New Technology Group 9 (ICD-10-PCS; 2025-01-20)
DX: G40.909 Epilepsy, unspecified, not intractable, without status epilepticus (principal); R41.82 Altered mental status, unspecified; F32.A Depression, unspecified; Z86.73 Personal history of transient ischemic attack (TIA), and cerebral infarction without residual deficits; R47.01 Aphasia; Z79.82 Long term (current) use of aspirin; Z79.899 Other long term (current) drug therapy
CPT/HCPCS: 0042T; 70450; 70496; 70498; 80053; 80061; 82962; 84484; 85025; 85610; 85730; 93005; 99285; G0378; Q9967